=== PATIENT | male | born 1995 | race Two or more races ===

== ENCOUNTER 2016-10-15 23:38 | Inpatient (IN) | payer OTHER ==
[~2016-10-15] VITALS: Ht 185.4 cm; Wt 65.8 kg
[2016-10-16] MEDS ORDERED: IV NORMAL SALINE 1000 ML BAG IV ONE
[2016-10-16] MEDS ORDERED: ONDANSETRON 4 MG/2 ML VIAL IV ONE
[2016-10-16] MEDS ORDERED: HYDROMORPHONE 1 MG/1 ML DISP.SYRIN IV ONE
[2016-10-16 00:08] LABS: BASOPHILS % (AUTO) 0.4 % (0.0-2.0); EOSINOPHILS # (AUTO) 0.1 K/uL (0.0-0.7); HEMATOCRIT 43.5 % (40-50); HEMOGLOBIN 14.9 G/DL (14.0-18.0); LYMPHOCYTES # (AUTO) 2.1 K/UL (0.8-4.8); LYMPHOCYTES % (AUTO) 34.3 % (20.5-51.5); MEAN CORPUSCULAR HEMOGLOBIN 29.4 UUG (27.0-31.0); MEAN CORPUSCULAR HGB CONC 34 g/dL (32.0-37.0); MEAN CORPUSCULAR VOLUME 85.6 FL (82.0-92.0); MONOCYTES # (AUTO) 0.6 K/UL (0.1-1.30); MONOCYTES % (AUTO) 9.5 % (0.0-11.0); NEUTROPHILS # (AUTO) 3.3 K/UL (1.8-8.9); NEUTROPHILS % (AUTO) 53.8 % (38.5-71.5); PLATELET COUNT (AUTO) 319 K/UL (150-450); RED BLOOD CELL COUNT(AUTO) 5.09 MIL/UL (4.7-6.1); WHITE BLOOD COUNT (AUTO) 6.1 K/UL (4.0-11.2)
[2016-10-16] MEDS ORDERED: ONDANSETRON 4 MG/2 ML VIAL ONE (00:19)
[2016-10-16] MEDS ORDERED: NITROGLYCERIN OINT 1 GM PACKET TP ONE ×2 (00:19)
[2016-10-16] MEDS ORDERED: HYDROMORPHONE 1 MG/1 ML DISP.SYRIN ONE (00:19)
[2016-10-16] MEDS ORDERED: NITROGLYCERIN 0.4 MG/TAB BOTTLE SL ONE ×2 (00:20)
--- NOTE | 2016-10-16 00:30 | NUR ---
Pt biba for c/o non radiating left sided chest pain. Pt was driving when pain developed. Pt also c/o feeling short of breath. Pt describes pain as "burning", pain initially an 8/10 and now a 6/10 upon arrival. Pt given 1 nitro and asa [employer]. Pt NSR on monitor. Pt's resp even and unlabored, speaking full sentences. Lungs CTA, no obvious distress noted. Labs drawn and sent. EKG obtained and given to MD. Pt seen by MD. Pt medicated for discomfort, will monitor for effects of medication. Pt resting in position of comfort for self.
[2016-10-16 00:31] LABS: BILIRUBIN,DIRECT 0.2 mg/dL (0.0-0.2); CREATININE 1.1 mg/dL (0.6-1.3); POTASSIUM 3.9 mmol/L (3.5-5.1); TOTAL PROTEIN, SERUM 7.1 g/dL (6.4-8.2)
--- NOTE | 2016-10-16 01:00 | NUR ---
Pt sts pain slightly improving with medications. Pt resting in position of comfort for self. No complaints at this time. Pt NSR with intermittent SB on the monitor. Resp even and unlabored. Fluid bolus cont infusing freely to gravity.
[2016-10-16] MEDS ORDERED: ACETAMINOPHEN ES 500 MG TABLET PO ONE (01:30)
[2016-10-16] MEDS ORDERED: ACETAMINOPHEN ES 500 MG TABLET ONE (01:32)
--- NOTE | 2016-10-16 01:40 | NUR ---
Pt c/o increase in chest pain from 07/21 to 09/20. As well as pt developed YEAGER sts 10/21. MD notified. Pt medicated for discomfort, will monitor for effects of medication. Repeat EKG obtained and shown to MD. Pt repositioned for comfort.
--- NOTE | 2016-10-16 03:00 | NUR ---
Pt resting with his eyes closed, resp even and unlabored.
[2016-10-16] MEDS ORDERED: MORPHINE SULFATE 4 MG/1 ML DISP.SYRIN IV ONE (03:15)
[2016-10-16] MEDS ORDERED: MORPHINE SULFATE 4 MG/1 ML DISP.SYRIN ONE (03:31)
[2016-10-16 04:00] VITALS: BP 108/63
--- NOTE | 2016-10-16 04:15 | NUR ---
Report called to [facility] Os[facility]. Preparing to transfer pt to the floor
--- NOTE | 2016-10-16 04:40 | NUR ---
Received patient from ER via [place]. Patient is alert, verbally responsive, in no acute distress, no SOB, chest pain alleviated from ER, chest pain level now down to 3/10. Admission process started, belonging list done and accounted for, care plan initiated. Patient is on tele - Sinus Maldonado. Will call MD for orders. Call light within reach, bed alarm on. Will continue to monitor.
[2016-10-16] MEDS ORDERED: ONDANSETRON 4 MG/2 ML VIAL IV PRN (06:00)
[2016-10-16] MEDS ORDERED: ACETAMINOPHEN 325 MG TABLET PO PRN (06:00)
[2016-10-16] MEDS ORDERED: HYDROCODONE/APAP 5-325MG TABLET PO PRN (06:00)
--- NOTE | 2016-10-16 07:30 | NUR ---
Awake, alert, oriented x 4. Still with some chest pain level 2/10, but feeling better. SB 54
[2016-10-16] MEDS ORDERED: ASPIRIN 81 MG TAB.CHEW PO SCH (09:00)
--- NOTE | 2016-10-16 11:30 | NUR ---
With headache, Nitropaste removed. Tylenol po given
[2016-10-16 11:36] VITALS: BP 115/66
[2016-10-16 15:39] VITALS: BP 112/70
--- NOTE | 2016-10-16 15:51 | NUR ---
With discharge order to home. Saline lock removed. Tele removed. DC instruction given to patient, verbalized understanding. Resting until headache is gone then will go home
--- NOTE | 2016-10-16 18:27 | NUR ---
Feeing better. Went home per ambulatory in fair condition, not in distress, afebrile.
== END 2016-10-16 18:30 | disposition home or self-care (01) | DRG 206 ==
LOC: ER 23:41 → TELE-TD 10-16 04:18 → TELE 10-16 05:15
PROVIDERS: ADMIT Internal Medicine; ATTEND Internal Medicine
DX: M94.0 Chondrocostal junction syndrome [Tietze] (principal); I51.4 Myocarditis, unspecified
CPT/HCPCS: 36415; 70030-TC; 71010; 85025; 85730; 93005; J1170; J2270; J2405; J7030